=== PATIENT | female | born 1960 | race Caucasian/White ===

== ENCOUNTER 2020-06-12 09:00 | Inpatient (IN) | payer MEDICARE, MEDICAID ==
[2020-06-05 12:16] LABS: BASOPHILS # (AUTO) 0.1 X10'3 (0-0.2); BASOPHILS % (AUTO) 0.8 % (0-1); EOSINOPHILS # (AUTO) 0.3 X10'3 (0-0.9); EOSINOPHILS % (AUTO) 4.2 % (0-6); LYMPHOCYTES # (AUTO) 2.5 X10'3 (1.1-4.8); LYMPHOCYTES % (AUTO) 36.5 % (21-51); MEAN CORPUSCULAR HEMOGLOBIN 31.3 PG (27.0-31.0); MEAN CORPUSCULAR HGB CONC 33.3 g/dL (33.0-36.5); MEAN CORPUSCULAR VOLUME 93.8 FL (78-98); MEAN PLATELET VOLUME 7.7 FL (7.4-10.4); MONOCYTES # (AUTO) 0.5 X10'3 (0-0.9); MONOCYTES % (AUTO) 7.9 % (2-12); NEUTROPHILS # (AUTO) 3.4 X10'3 (1.8-7.7); NEUTROPHILS % (AUTO) 50.6 % (42-75); PRE OP HEMATOCRIT 42.4 % (35.0-45.0); PRE OP HEMOGLOBIN 14.1 g/dL (12.0-16.0); PRE OP PLATELET COUNT 201 X10'3 (140-440); RED BLOOD COUNT 4.51 X10'6 (4.20-5.60); RED CELL DISTRIBUTION WIDTH 14.2 % (11.5-14.5)
[2020-06-05 12:28] LABS: PRE OP PROTIME 10.3 SECONDS (9.0-12.0)
[2020-06-05 12:47] LABS: ALBUMIN/GLOBULIN RATIO 0.8 (1.1-1.5); ALKALINE PHOSPHATASE 69 IU/L (46-116); BLOOD UREA NITROGEN 19 MG/DL (7-18); BUN/CREATININE RATIO 25.7 (6.6-38.0); CALCIUM 9.3 MG/DL (8.5-10.1); CHLORIDE 104 MMOL/L (99-107); CREATININE 0.74 MG/DL (0.40-0.90); PRE OP ALT 16 U/L (30-65); PRE OP ANION GAP 7 (8-16); PRE OP AST 11 U/L (10-37); PRE OP BILIRUB, TOTAL 0.2 MG/DL (0.0-1.0); PRE OP GLUCOSE 122 MG/DL (70-104); PRE OP POTASSIUM 4.3 MMOL/L (3.4-5.1); PRE OP SODIUM 140 MMOL/L (135-145); TOTAL CARBON DIOXIDE 28.6 MMOL/L (24-32); TOTAL PROTEIN 6.6 G/DL (6.4-8.2); eGFR 80 ML/MIN
[~2020-06-12] VITALS: Ht 157.5 cm; Wt 76.0 kg
[2020-06-12] VITALS (20 sets, daily range): BP systolic 120–142; BP diastolic 41–89
[~2020-06-12 09:00] MED LIST: ACET325T57 PO; CHOL10006 PO; CLOB10TA3 PO; DIVA-76 PO; DIVA250T15 PO; DOXY50CA2 PO; DULO-31 PO; DULO60CA45 PO; LACO100T2 PO; LACO150T2 PO; LAMO150T2 PO; LEVO88TA2 PO; MELA3TAB70 PO; NYST1POW29 TP; POLY119P2 PO; SIMV-42 PO; ceFOXitin 2GM-NS 100mL ADDvant 100 ML IV ONE; famotidine 20mg tablet PO ONE
[2020-06-12] MEDS ORDERED: hydrALAZINE 20mg/ml inj. IV PRN (10:00)
[2020-06-12] MEDS ORDERED: morphine 2 MG/ML inj. syringe IV PRN (10:00)
[2020-06-12] MEDS ORDERED: ondansetron/PF 4mg/2ml inj IV PRN ×2 (10:00→12:25)
[2020-06-12] MEDS ORDERED: fentaNYL/PF 50MCG/1 ML 2ML syringe IV PRN ×2 (10:00)
[2020-06-12] MEDS ORDERED: ringers solution, lacted 1,000 ML IV SCH (10:00)
[2020-06-12] MEDS ORDERED: morphine 4 MG/ML inj SYRINge IV PRN (10:00)
[2020-06-12] MEDS ORDERED: labetalol 20mg/4ml (5mg/ml) syringe IV PRN (10:00)
[2020-06-12] MEDS ORDERED: famotidine/PF 10 mg/ml inj IV ONE (10:10)
[2020-06-12] MEDS: ringers solution, lacted 1,000 ML IV SCH ×2 (10:15→22:13)
[2020-06-12] MEDS ORDERED: BUPIVAcaine/PF 2.5 mg/ml (0.25%) 30ml vial ONE (11:49)
[2020-06-12] MEDS ORDERED: iohexol 300 MG/1 ML 50ml polymer ONE (11:49)
[2020-06-12] MEDS ORDERED: rocuronium 10mg/ml inj IV ONE ×2 (12:03→12:15)
[2020-06-12] MEDS ORDERED: sevoflurane 250ml liquid IH ONE (12:03)
[2020-06-12] MEDS ORDERED: neostigmine methylsulfate 1 MG/ML 10ml vial ONE (12:03)
[2020-06-12] MEDS ORDERED: dexamethasone sod phosphate 10mg/ml inj ONE (12:03)
[2020-06-12] MEDS ORDERED: midazolam 2 mg/2 ml injection ONE ×2 (12:07→12:21)
[2020-06-12] MEDS ORDERED: fentaNYL/PF 50MCG/1 ML 2ML syringe ONE (12:07)
[2020-06-12] MEDS ORDERED: LIDOcaine 2% (20mg/ml) 5ml vial ONE (12:14)
[2020-06-12] MEDS ORDERED: propofol inj 20 ML IV ONE (12:14)
[2020-06-12] MEDS ORDERED: ondansetron/PF 4mg/2ml inj ONE (12:15)
[2020-06-12] MEDS ORDERED: glycopyrrolate 0.2mg/ml inj ONE (12:22)
--- NOTE | 2020-06-12 14:08 | NUR ---
RECEIVED FROM OR VIA BED ACCOMPANIED BY ANESTHESIOLOGIST DR THOMAS, REPORT GIVEN. PT DROWSY BUT AROUSES, NO COMPLAINT OF PAIN AT THIS TIME.18 GAUGE PIV R AC PATENT AND RUNNING LR AT 100 NL/HR. PROVENA DRESSING MIDLINE ABD CDI AND TO SUCTION, LG BANDAID X2 CDI, ABD SOFT, GOOD PPULSES, GOOD CAP REFILL, SKIN PINK AND WARM. F/C DRAINING CLEAR COURTNEY TINGED URINE, SCDS ON, RESTING COMFORTABLY.
--- NOTE | 2020-06-12 15:38 | NUR ---
TRANSFERRED VIA BED ACCOMPANIED BY TW RNS, REPORT GIVEN. PT DROWSY BUT AROUSES, NO COMPLAINT OF PAIN AT THIS TIME.18 GAUGE PIV R AC PATENT AND RUNNING LR AT 100 NL/HR. PROVENA DRESSING MIDLINE ABD CDI AND TO SUCTION, LG BANDAID X2 CDI, ABD SOFT, GOOD PPULSES, GOOD CAP REFILL, SKIN PINK AND WARM. F/C DRAINING CLEAR COURTNEY TINGED URINE, SCDS ON, RESTING COMFORTABLY. LEFT IN CARE OF LENIN RN AND A SITTER.
[2020-06-12] MEDS ORDERED: nystatin 15 GM powder TP PRN (16:00)
[2020-06-12] MEDS ORDERED: acetaminophen 325mg tablet PO PRN (16:00)
--- NOTE | 2020-06-12 16:00 | NUR ---
RECEIVED PATIENT TO ROOM 357B VIA GURNEY ACCOMPANIED BY NI RONDON. PATIENT DROWSY BUT EASILY AROUSES TO VOICE. DOES NOT APPEAR TO BE IN ANY APPARENT ACUTE DISTRESS, APPEARS TO BE RESTING COMFORTABLY. X2 LAP SITES WITH ONE MIDLINE ABD PREVENA IN PLACE DRESSING CDI. LEARY CATH DRAINING TO GRAVITY WITH CLEAR, PINK TINGED URINE. BED LOW AND LOCKED, SITTER AT BEDSIDE.
[2020-06-12] MEDS: Doxycycline Hyclate 50 MG PO SCH (17:05)
--- NOTE | 2020-06-12 18:46 | NUR ---
Problems reprioritized. Patient report given, questions answered & plan of care reviewed with Esther RN.
--- NOTE | 2020-06-12 19:30 | NUR ---
unable to complete fall risk; pt from a skilled nursing; questionable as to whether pt has a HX of falls or is ambulatory Addendum: 06/13/20 at 0452 by Ally Crockett RN Amended: Links added.
--- NOTE | 2020-06-12 19:30 | NUR ---
pt moans briefly with basic hospital activities, but returns easily to sleep with face calm & relaxed Addendum: 06/13/20 at 0452 by Ally Crockett RN Amended: Links added.
--- NOTE | 2020-06-12 19:30 | NUR ---
o2 sats range mid to upper 80's to 97 depending on placement of 02 probe on finger & when pt pulls off o2 via NC at 3 liters Addendum: 06/13/20 at 0452 by Ally Crockett RN Amended: Links added.
[2020-06-12] MEDS ORDERED: divalproex sod 250mg ER (24-hour) tablet PO SCH (20:00)
[2020-06-12] MEDS: CLOBAZAM 10 MG PO SCH (21:00)
[2020-06-12] MEDS: divalproex sodium 500mg tablet.DR PO SCH (21:22)
[2020-06-12] MEDS: LACOSAMIDE 50 MG TABLET PO SCH ×2 (21:23→21:24)
[2020-06-12] MEDS: duloxetine 30mg CAPSULE.DR PO SCH ×2 (21:24)
[2020-06-12] MEDS: atorvastatin 10mg tablet PO SCH (21:25)
[2020-06-12] MEDS: lamoTRIgine 100mg tablet PO SCH (21:25)
[2020-06-12] MEDS: Melatonin 3mg tablet PO SCH (21:25)
[2020-06-13] VITALS: BP 110/63
[2020-06-13 04:00] VITALS: BP 117/63
[2020-06-13 07:00] VITALS: BP 114/54
[2020-06-13] MEDS: Doxycycline Hyclate 50 MG PO SCH (08:00)
[2020-06-13] MEDS: CLOBAZAM 10 MG PO SCH ×2 (08:00→21:00)
[2020-06-13] MEDS: LACOSAMIDE 50 MG TABLET PO SCH ×4 (08:04→20:40)
[2020-06-13] MEDS: polyethylene glycol 3350 17gm powd pack PO SCH (08:05)
[2020-06-13] MEDS: vitamin D (cholecalciferol) 1,000 unit tablet PO SCH (08:05)
[2020-06-13] MEDS: lamoTRIgine 100mg tablet PO SCH ×2 (08:05→20:41)
[2020-06-13] MEDS: levoTHYROXINE 88mcg tablet PO SCH (08:05)
[2020-06-13] MEDS: divalproex sodium 500mg tablet.DR PO SCH (08:06)
[2020-06-13] MEDS ORDERED: divalproex sodium 250mg tablet PO SCH ×2 (08:14→08:15)
[2020-06-13] MEDS: divalproex sodium 250mg tablet PO SCH ×4 (08:15→20:40)
[2020-06-13 12:00] VITALS: BP 152/82
[2020-06-13] MEDS: ringers solution, lacted 1,000 ML IV SCH ×2 (15:00→20:52)
--- NOTE | 2020-06-13 15:00 | NUR ---
DR CANDELARIA AWARE PATIENT HAS NOT VOIDED SINCE DC OF LEARY CATHETER. RECEIVED ORDER FOR LR TO BE INCREASED FROM 20ML/HR TO 120ML/HR.
--- NOTE | 2020-06-13 16:30 | NUR ---
PATIENT HAS NOT VOIDED SINCE DC OF LEARY CATHETER. BLADDER SCAN SHOWS 70ML IN BLADDER. WILL CONTINUE TO MONITOR.
[2020-06-13 18:00] VITALS: BP 106/68
--- NOTE | 2020-06-13 18:59 | NUR ---
Problems reprioritized. Patient report given, questions answered & plan of care reviewed with NI JOHNSON.
--- NOTE | 2020-06-13 19:00 | NUR ---
Patient in room [facility]. I have received report from LENIN DAN and had the opportunity to ask questions and assume patient care.
[2020-06-13] MEDS: duloxetine 30mg CAPSULE.DR PO SCH ×2 (20:38→20:39)
[2020-06-13] MEDS: atorvastatin 10mg tablet PO SCH (20:41)
[2020-06-13] MEDS: Melatonin 3mg tablet PO SCH (20:41)
[2020-06-14] VITALS: BP 112/76
[2020-06-14] MEDS: HYDROcodone/acetaminophen 10/325mg tab PO PRN ×2 (01:48→20:20)
[2020-06-14] MEDS: ringers solution, lacted 1,000 ML IV SCH ×3 (05:16→23:49)
--- NOTE | 2020-06-14 06:30 | NUR ---
Problems reprioritized. Patient report given, questions answered & plan of care reviewed with MARISSA DAN.
--- NOTE | 2020-06-14 06:40 | NUR ---
Patient in room [facility]. I have received report from Kirsten Curtis RN and had the opportunity to ask questions and assume patient care.
[2020-06-14 07:42] VITALS: BP 128/63
[2020-06-14] MEDS: CLOBAZAM 10 MG PO SCH ×2 (08:00→20:30)
[2020-06-14] MEDS: Doxycycline Hyclate 50 MG PO SCH (08:00)
[2020-06-14] MEDS: LACOSAMIDE 50 MG TABLET PO SCH ×4 (08:39→20:19)
[2020-06-14] MEDS: vitamin D (cholecalciferol) 1,000 unit tablet PO SCH (08:40)
[2020-06-14] MEDS: divalproex sodium 250mg tablet PO SCH ×4 (08:40→20:17)
[2020-06-14] MEDS: levoTHYROXINE 88mcg tablet PO SCH (08:40)
[2020-06-14] MEDS: polyethylene glycol 3350 17gm powd pack PO SCH (08:41)
[2020-06-14] MEDS: lamoTRIgine 100mg tablet PO SCH ×2 (08:42→20:18)
[2020-06-14 12:08] VITALS: BP 123/76
--- NOTE | 2020-06-14 18:17 | NUR ---
Problems reprioritized. Patient report given, questions answered & plan of care reviewed with Kirsten Curtis RN.
--- NOTE | 2020-06-14 18:30 | NUR ---
Patient in room [facility]. I have received report from MARISSA DAN and had the opportunity to ask questions and assume patient care.
[2020-06-14 20:00] VITALS: BP 167/71
[2020-06-14] MEDS: duloxetine 30mg CAPSULE.DR PO SCH ×2 (20:19→20:20)
[2020-06-14] MEDS: Melatonin 3mg tablet PO SCH (20:20)
[2020-06-14] MEDS: atorvastatin 10mg tablet PO SCH (20:20)
[2020-06-15 05:50] LABS: ALANINE AMINOTRANSFERASE 15 U/L (12-78); ALBUMIN 2.3 G/DL (3.4-5.0); ALBUMIN/GLOBULIN RATIO 0.7 (1.1-1.5); ALKALINE PHOSPHATASE 48 IU/L (46-116); ANION GAP 4 (8-16); ASPARTATE AMINO TRANSFERASE 12 U/L (10-37); BILIRUBIN,TOTAL 0.2 MG/DL (0.1-1.0); BLOOD UREA NITROGEN 5 MG/DL (7-18); BUN/CREATININE RATIO 7.1 (6.6-38.0); CALCIUM 9.3 MG/DL (8.5-10.1); CHLORIDE 106 MMOL/L (99-107); GLUCOSE 103 MG/DL (70-104); POTASSIUM 3.7 MMOL/L (3.5-5.1); SODIUM 142 MMOL/L (135-145); TOTAL CARBON DIOXIDE 32.2 MMOL/L (24-32); TOTAL PROTEIN 5.5 G/DL (6.4-8.2); eGFR 85 ML/MIN
[2020-06-15 05:55] LABS: BASOPHILS % (AUTO) 0.4 % (0-1); EOSINOPHILS # (AUTO) 0.3 X10'3 (0-0.9); EOSINOPHILS % (AUTO) 4.1 % (0-6); HEMATOCRIT 36.7 % (35.0-45.0); HEMOGLOBIN 12.2 g/dl (12.0-16.0); LYMPHOCYTES # (AUTO) 2.8 X10'3 (1.1-4.8); LYMPHOCYTES % (AUTO) 36.7 % (21-51); MEAN CORPUSCULAR HEMOGLOBIN 31.1 PG (27.0-31.0); MEAN CORPUSCULAR HGB CONC 33.3 g/dL (33.0-36.5); MEAN CORPUSCULAR VOLUME 93.4 FL (78-98); MEAN PLATELET VOLUME 7.4 FL (7.4-10.4); MONOCYTES # (AUTO) 0.8 X10'3 (0-0.9); MONOCYTES % (AUTO) 10.4 % (2-12); NEUTROPHILS # (AUTO) 3.7 X10'3 (1.8-7.7); NEUTROPHILS % (AUTO) 48.4 % (42-75); PLATELET COUNT 167 X10'3 (140-440); RED BLOOD COUNT 3.93 X10'6 (4.20-5.60); WHITE BLOOD COUNT 7.6 X10'3 (4.5-11.0)
--- NOTE | 2020-06-15 06:25 | NUR ---
Patient in room [facility]. I have received report from Kirsten Curtis RN and had the opportunity to ask questions and assume patient care.
--- NOTE | 2020-06-15 06:33 | NUR ---
Problems reprioritized. Patient report given, questions answered & plan of care reviewed with GALE DAN.
[2020-06-15 07:58] VITALS: BP 126/62
[2020-06-15] MEDS: CLOBAZAM 10 MG PO SCH ×2 (08:00→20:48)
[2020-06-15] MEDS: lamoTRIgine 100mg tablet PO SCH ×2 (08:45→20:46)
[2020-06-15] MEDS: levoTHYROXINE 88mcg tablet PO SCH (08:45)
[2020-06-15] MEDS: divalproex sodium 250mg tablet PO SCH ×4 (08:45→20:46)
[2020-06-15] MEDS: LACOSAMIDE 50 MG TABLET PO SCH ×4 (08:46→20:47)
[2020-06-15] MEDS: vitamin D (cholecalciferol) 1,000 unit tablet PO SCH (08:46)
[2020-06-15] MEDS: ringers solution, lacted 1,000 ML IV SCH ×2 (08:49→17:00)
[2020-06-15 11:00] VITALS: BP 120/55
--- NOTE | 2020-06-15 18:22 | NUR ---
Problems reprioritized. Patient report given, questions answered & plan of care reviewed with Kirsten Curtis Rn.
--- NOTE | 2020-06-15 18:30 | NUR ---
Patient in room [facility]. I have received report from GALE DAN and had the opportunity to ask questions and assume patient care.
[2020-06-15 20:00] VITALS: BP 142/50
[2020-06-15] MEDS: duloxetine 30mg CAPSULE.DR PO SCH ×2 (20:47→20:48)
[2020-06-15] MEDS: Melatonin 3mg tablet PO SCH (20:48)
[2020-06-15] MEDS: atorvastatin 10mg tablet PO SCH (20:48)
[2020-06-16] VITALS: BP 109/67
[2020-06-16] MEDS: ringers solution, lacted 1,000 ML IV SCH ×4 (04:25→23:45)
--- NOTE | 2020-06-16 06:14 | NUR ---
Problems reprioritized. Patient report given, questions answered & plan of care reviewed with GALE DAN.
--- NOTE | 2020-06-16 06:16 | NUR ---
Patient in room [facility]. I have received report from Kirsten Curtis RN and had the opportunity to ask questions and assume patient care.
[2020-06-16 07:54] VITALS: BP 119/65
[2020-06-16] MEDS: vitamin D (cholecalciferol) 1,000 unit tablet PO SCH (08:00)
[2020-06-16] MEDS: divalproex sodium 250mg tablet PO SCH ×4 (09:14→20:47)
[2020-06-16] MEDS: LACOSAMIDE 50 MG TABLET PO SCH ×4 (09:15→20:48)
[2020-06-16] MEDS: levoTHYROXINE 88mcg tablet PO SCH (09:16)
[2020-06-16] MEDS: lamoTRIgine 100mg tablet PO SCH ×2 (09:17→20:49)
[2020-06-16] MEDS: CLOBAZAM 10 MG PO SCH ×2 (09:34→20:51)
[2020-06-16 12:00] VITALS: BP 130/62
--- NOTE | 2020-06-16 18:26 | NUR ---
Problems reprioritized. Patient report given, questions answered & plan of care reviewed with Bonny DAN.
--- NOTE | 2020-06-16 18:58 | NUR ---
Patient in room [facility]. I have received report from Dena DAN and had the opportunity to ask questions and assume patient care.
[2020-06-16 20:00] VITALS: BP 135/57
[2020-06-16] MEDS: Melatonin 3mg tablet PO SCH (20:47)
[2020-06-16] MEDS: atorvastatin 10mg tablet PO SCH (20:47)
[2020-06-16] MEDS: duloxetine 30mg CAPSULE.DR PO SCH ×2 (20:47)
[2020-06-17] VITALS: BP 115/65
[2020-06-17] MEDS: ringers solution, lacted 1,000 ML IV SCH ×2 (05:42→20:31)
--- NOTE | 2020-06-17 06:18 | NUR ---
Problems reprioritized. Patient report given, questions answered & plan of care reviewed with Dena DAN.
[2020-06-17 08:00] VITALS: BP 119/46
[2020-06-17] MEDS: vitamin D (cholecalciferol) 1,000 unit tablet PO SCH (08:00)
[2020-06-17] MEDS: LACOSAMIDE 50 MG TABLET PO SCH ×4 (09:37→20:32)
[2020-06-17] MEDS: CLOBAZAM 10 MG PO SCH ×2 (09:37→20:46)
[2020-06-17] MEDS: lamoTRIgine 100mg tablet PO SCH ×2 (09:37→20:33)
[2020-06-17] MEDS: divalproex sodium 250mg tablet PO SCH ×4 (09:38→20:34)
[2020-06-17] MEDS: levoTHYROXINE 88mcg tablet PO SCH (09:39)
[2020-06-17 11:00] VITALS: BP 136/78
--- NOTE | 2020-06-17 14:02 | NUR ---
Initial: Pt admit s/p sigmoid colon resection for mass hx severe autism, non-verbal at baseline w/ caregiver per EMR. 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 Noted PO pureed liquids in EMR; likely pureed soup from full liquid diet. DAMON contacted [employer] caregiver who reports pt on pureed/thin liquids typically at facility though if excessive shaking may thicken liquids in order to spoon feed them for hydration. Caregiver reports pt typically has good appetite. Pt would benefit from Ensure Enlive BIDBD for additional protein/kcal needs post-op; not appropriate for high protein ed given hx. notified of ONS recs. Smears past 3 days; DAMON d/w RN regarding routine bowel care if surgeon agreeable. Will continue to monitor for PO diet advancement, tolerance, and additional protein needs this admit. Rec: 1. advance diet as medically indicated to pureed/thin liquids w/ feeder; encourage PO; hx corkscrew esophagus 2. Ensure Enlive BIDBD 3. routine bowel care if surgeon agreeable post-op 4. weekly wts Addendum: 06/17/20 at [address] Amended: Links added.
[2020-06-17] MEDS ORDERED: lactose-reduced food (Ensure Enlive) - 237ml bottle PO SCH (17:30)
--- NOTE | 2020-06-17 18:00 | NUR ---
Problems reprioritized. Patient report given, questions answered & plan of care reviewed with Bonny ADN.
--- NOTE | 2020-06-17 18:59 | NUR ---
Patient in room [facility]. I have received report from Dena DAN and had the opportunity to ask questions and assume patient care.
[2020-06-17 20:00] VITALS: BP 113/68
[2020-06-17] MEDS: atorvastatin 10mg tablet PO SCH (20:32)
[2020-06-17] MEDS: duloxetine 30mg CAPSULE.DR PO SCH ×2 (20:33)
[2020-06-17] MEDS: Melatonin 3mg tablet PO SCH (20:33)
[2020-06-18] VITALS: BP 123/70
--- NOTE | 2020-06-18 06:37 | NUR ---
Problems reprioritized. Patient report given, questions answered & plan of care reviewed with Jeannette DAN.
[2020-06-18 07:00] VITALS: BP 114/63
[2020-06-18] MEDS: lamoTRIgine 100mg tablet PO SCH (08:36)
[2020-06-18] MEDS: divalproex sodium 250mg tablet PO SCH ×2 (08:36)
[2020-06-18] MEDS: LACOSAMIDE 50 MG TABLET PO SCH ×2 (08:36)
[2020-06-18] MEDS: levoTHYROXINE 88mcg tablet PO SCH (08:37)
[2020-06-18] MEDS: vitamin D (cholecalciferol) 1,000 unit tablet PO SCH (08:38)
[2020-06-18] MEDS: CLOBAZAM 10 MG PO SCH (09:20)
--- NOTE | 2020-06-18 09:52 | NUR ---
Dr Wisdom called ok to run Rapid Covid on patient so she can go back to her facility.
[2020-06-18 11:00] VITALS: BP 140/80
--- NOTE | 2020-06-18 11:14 | NUR ---
PROVENA DC'D, NO COMPLICATIONS.
--- NOTE | 2020-06-18 13:33 | NUR ---
PATIENT STABLE AND APPROPRIATE FOR DISCHARGE BACK TO [facility]. IV REMOVED. ALL BELONGINGS TAKEN FROM ROOM INCLUDING HELMET AND PATIENTS WHEELCHAIR. HOME MEDICATIONS PICKED UP FROM PHARMACY. NO NEW PRESCRIPTIONS. PATIENT PICKED UP BY CAREGIVER (HINA). ALL DISCHARGE INSTRUCTIONS AND FOLLOW UP CARE DISCUSSED WITH HINA, ALL QUESTIONS ANSWERED. CAREGIVER IS AWARE OF NEXT DUE DOSES FOR ALL HOME MEDICATIONS.
== END 2020-06-18 13:25 | disposition home or self-care (01) | DRG 330 ==
LOC: EDSTATUS 09:00 → UNDOADMIN 09:12 → PAS IN 09:12 → SUR 3N 15:40 → PAS IN 15:40
PROVIDERS: ADMIT Surgery; ATTEND Surgery
PROC: BT141ZZ Fluoroscopy of Kidneys, Ureters and Bladder using Low Osmolar Contrast (ICD-10-PCS; 2020-06-12)
PROC: 0DTN4ZZ Resection of Sigmoid Colon, Percutaneous Endoscopic Approach (ICD-10-PCS; principal; 2020-06-12 12:03)
PROC: 0T9880Z Drainage of Bilateral Ureters with Drainage Device, Via Natural or Artificial Opening Endoscopic (ICD-10-PCS; 2020-06-12 12:03)
DX: C18.7 Malignant neoplasm of sigmoid colon (principal); F84.0 Autistic disorder; E03.9 Hypothyroidism, unspecified; E78.5 Hyperlipidemia, unspecified; K66.9 Disorder of peritoneum, unspecified; Z85.038 Personal history of other malignant neoplasm of large intestine; Z20.828 Contact with and (suspected) exposure to other viral communicable diseases
CPT/HCPCS: 36415; 80053; 82948; 84443; 85025; 85610; 85730; 86885; 86900; 86901; 86920; 87081; 87635; 88309; 93005; A4215; A4355; A4618; A7000; C1758; C1769; G0378; J0694; J1100; J2001; J2250; J2405; J2704; J2710; J3010; J3490; J7120; Q9967

== ENCOUNTER 2021-07-03 08:49 | Emergency (ER) | payer MEDICARE, MEDICAID ==
[~2021-07-03] VITALS: Ht 157.5 cm; Wt 69.7 kg
[~2021-07-03 08:49] MED LIST changes: -ceFOXitin 2GM-NS 100mL ADDvant 100 ML IV ONE; -famotidine 20mg tablet PO ONE
[2021-07-03 09:01] VITALS: BP 148/105
[2021-07-03] MEDS ORDERED: ACYC400T39 PO (09:20)
== END 2021-07-03 09:37 | disposition home or self-care (01) ==
LOC: ER 08:49
DX: G51.0 Bell's palsy (principal); Z85.038 Personal history of other malignant neoplasm of large intestine; Z79.2 Long term (current) use of antibiotics; Z79.899 Other long term (current) drug therapy
CPT/HCPCS: 99284